=== PATIENT | male | born 1975 | race Caucasian/White ===

== ENCOUNTER → 2023-06-26 14:53 | Outpatient (REF) | payer OTHER, SELFPAY | LOC: RAD 14:53 | PROVIDERS: ATTENDING PHYSICIAN Specialist; FAMILY PHYSICIAN Nurse Practitioner Family | DX: C62.01 Malignant neoplasm of undescended right testis (principal) | CPT/HCPCS: 76870; 93976 ==

== ENCOUNTER 2024-02-20 12:05 | Inpatient (IN) | payer OTHER, SELFPAY ==
[2024-02-20] VITALS (22 sets, daily range): BP systolic 118–160; BP diastolic 67–94; PULSE 46–74; BMI 23.0; BMI 24.5
--- NOTE | 2024-02-20 08:20 | ED.GENMED ---
History of Present Illness
General
Chief Complaint: Abdominal Symptoms
Source: patient
Time Seen by Provider: 02/20/24 08:09
History of Present Illness
History of Present Illness:
48yoM with a history of depression presenting for evaluation of vomiting. His Trintellix dose was increased last week from 15mg to 20mg. He started to have fatigue and nausea starting 2 days ago. He has been vomiting persistently over the past
several days. He noticed that his emesis started to appear dark brown this morning and he then had an episode of bright red blood mixed in with his emesis. Patient has some burning pain in his throat but otherwise denies pain. He denies any
dizziness, syncope, shortness of breath, fevers, diarrhea. Of note, patient had a BBQ the day his symptoms started although he denies any suspicious food intake. No recent travel or sick contacts. He denies any NSAID use.
Phy Exam
Physical Exam
Physical Exam:
Actively vomiting coffee ground emesis during exam
General Physical Exam
General Presentation: mild distress
General Skin: warm and dry
General Habitus: normal
General Mental: alert
ENT Exam
ENT Exam: normocephalic
Cardiovascular Exam
Cardiovascular Exam: regular rate/rhythm
Pulmonary Exam
Pulmonary Exam: lungs clear, no respiratory distress, no crackles and no wheezing
Gastrointestinal Exam
Gastrointestinal Exam: non tender, soft and non distended
Alex Coma Scale
Eye Opening: Spontaneous
Verbal Response: Oriented
Motor Response: Obeys Commands
GCS Total Score: 15
Skin Exam
Skin Exam: normal color and warm/dry
Psychiatric Exam
Psychiatric Exam: normal mood/affect
Course
Orders/Labs/Results
Orders:
Orders
02/20/24 08:18
0.9% Sodium Chloride 1000 ml [Nss] 1,000 ml IV BOLUS
Famotidine [Pepcid] 20 mg IV NOW STA
Ondansetron Injectable [Zofran] 4 mg IV NOW STA
Pantoprazole [Protonix IV] 80 mg IV NOW STA
02/20/24 08:46
Type+Screen Urgent
Complete Blood Count/With Diff Urgent
Lactate Level [Lactic Acid] Urgent
02/20/24 08:47
Comprehensive Metabolic Panel Urgent
Lipase Urgent
Magnesium Urgent
PTT Urgent
Prothrombin Time Urgent
02/20/24 09:51
ABO2 Urgent
BBK Wristband Number:
Associate notified that ABO2 has been ordered: [id number]
Date: 02/20/24
Time: 09:20
Councilman ID: [id number]
02/20/24 10:21
0.9% Sodium Chloride 1000 ml [Nss] 1,000 ml IV BOLUS
Ondansetron Injectable [Zofran] 4 mg IV NOW STA
02/20/24 11:45
Admit/Transfer Patient As Directed
Co-Sign Provider:
Level of Care: Inpatient admission
Assign to:: Medical/Surgical
Physician / Group: leandra kerr
Diagnosis: hematemesis
Reason for Hospitalization: hematemesis
Expected length of stay greater than two midnights?: Yes
ELOS- Estimated Length of Stay in days: 2
I certify the patient meets the requirements for IP care: Yes
PRN Pain Medication Management As Directed
May give lesser potent ordered pain med per pt: Yes
preference::
Protocol:: Medication orders for pain may be administered in a
manner that supports deferring to patient preference
when the pt is:
- Requesting an ordered lesser potent pain medication.
Least to most potent pain medications are defined
as: acetaminophen < NSAID < tramadol < opioids
(morphine, oxycodone, hydromorphone).
- Requesting a lesser dose of the same medication IF
ORDERED.
- Requesting a less intrusive route of administration
if both routes are prescribed by the provider (PO <
IV).
02/20/24 11:46
Code Status As Directed
Resuscitation Status: Full Code
02/20/24 12:09
0.9% Sodium Chloride 1000 ml [Nss] 1,000 ml IV 100 mls/hr
Acetaminophen [Tylenol] 650 mg PO Q6HPRN PRN
Ondansetron Injectable [Zofran] 4 mg IV Q6HPRN PRN
Prochlorperazine [Compazine] 10 mg IV Q6HPRN PRN
02/20/24 12:09
EKG [Electrocardiogram (*1)] Routine
Reason for Study: QTc Monitoring
Activity As Directed
Activity Level: Ambulate
INT (Intravenous Needle Therapy) As Directed
Comment: Place 2 IV catheters of the largest bore possible until stable
Orthostatic Vital Signs As Directed
Orthostatic VS Frequency: Now
Comment: then every four hours for twenty-four hours
Pneumatic Compression Sleeves As Directed
Type: Knee high
Vital Signs As Directed
Frequency: Per unit guidelines
DX Deep Vein Thrombosis Video Routine
02/20/24 Dinner
Clear Liquid
At Your Request: Limited Participation
Does patient need a safe tray?: No
02/20/24 20:00
Pantoprazole [Protonix IV] 40 mg IV BID
02/21/24 06:00
Basic Metabolic Panel IN AM
Complete Blood Count/No Diff IN AM
02/21/24 08:00
vortioxetine [Trintellix] 20 mg PO DAILY
02/22/24 06:00
Basic Metabolic Panel IN AM
Complete Blood Count/No Diff IN AM
02/23/24 06:00
Basic Metabolic Panel IN AM
Complete Blood Count/No Diff IN AM
Abnormal Lab Results
02/20/24 02/20/24
08:46 08:47
MCH 31.9 H pg
(27.0-31.0)
Absolute Lymphs (auto) 1.1 L 10^3/uL
(1.2-3.4)
BUN 22 H mg/dl
(9-20)
Glucose 101 H mg/dl
(70-99)
Lactic Acid 2.9 H mmol/L
(0.7-2.0)
Total Bilirubin 1.4 H mg/dl
(0.2-1.3)
02/20/24 08:46
02/20/24 08:47
Vital Signs
Initial and Last Documented VS:
Initial Vital Signs
Temp Pulse Resp BP Pulse Ox
98.2 F 72 18 154/94 98
02/20/24 08:04 02/20/24 08:04 02/20/24 08:04 02/20/24 08:04 02/20/24 08:04
Last Documented Vital Signs
Temp Pulse Resp BP Pulse Ox
98.2 F 56 19 125/72 96
02/20/24 08:04 02/20/24 13:15 02/20/24 13:15 02/20/24 13:00 02/20/24 13:15
MDM/Problems Addressed
Differential Diagnosis Includes:
48yoM here with nausea and vomiting x 2 days. Started with coffee ground emesis/hematemesis this morning. VSS. He is actively vomiting coffee ground emesis on initial exam. Abdominal exam is benign. Differential diagnosis includes but is not limited
to: PUD, gastritis, Allie Leon tear, anemia
Initial ED plan: Check abdominal labs, coags, and lactate. IV Protonix, Pepcid, Zofran, and fluid bolus for symptoms.
*Critical Care Note
Total Time (30-74mins, 75-104mins- exclusive of procedures): Not Applicable
Update Note
Update Note:
Hemoglobin normal at 15.3. Lactate elevated at 2.9. Remainder of labs unremarkable. Patient admitted given active coffee-ground emesis. Patient hemodynamically stable at time of admission.
ED Attending Note
-
Portions of this chart may have been created with voice recognition software.� Occasional wrong word or��sound alike� substitutions may have occurred due to the inherent limitations of voice recognition software.
Discharge Plan
Departure
Patient Disposition: Admit
Date of Disposition: 02/20/24
Time of Disposition: :24
Presentation/result/management discussed w/ accepting MD/DO: Hospitalist
Discharge Problem:
Coffee ground emesis
Interventions
Interventions:
*Risk Screen - Suicide Last Done: 02/20/24 08:04
*General Assessment Last Done: 02/20/24 08:33
*Neglect/Abuse Screening Last Done: 02/20/24 08:33
ED- Fall Risk Assessment Last Done: 02/20/24 08:33
*ED COVID-19 Vaccine History Last Done: 02/20/24 08:33
CX-Xvecqf-Rlbeuaaiqd Assessment Last Done: 02/20/24 08:33
[2024-02-20] MEDS: ZOFRAN 4 MG IV ×2 (08:51→10:38)
[2024-02-20] MEDS: NSS 1000 IV ×4 (08:51→23:28)
[2024-02-20] MEDS: PEPCID 20 MG IV (08:54)
[2024-02-20] MEDS: PROTONIX IV 80 MG IV (08:55)
[2024-02-20 09:10] LABS: % Basophils 0.4 % (0-2); % Eosinophils 0.2 % (0-6); % Immature Granulocytes 0.2 % (0-0.5); % Lymphocytes 21.1 % (20.5-51.1); % Monocytes 6.8 % (1.7-9.3); % Neutrophils 71.3 % (42.2-75.2); Absolute Lymphocytes 1.1 10^3/uL (1.2-3.4); Absolute Monocytes 0.4 10^3/uL (0.1-0.6); Absolute Neutrophils 3.7 10^3/uL (1.4-6.5); Hematocrit 43.6 % (39.0-52.0); Hemoglobin 15.3 g/dL (13.0-18.0); Mean Corp Hgb Conc. 35.1 g/dL (33.0-37.0); Mean Corpuscular Hgb 31.9 pg (27.0-31.0); Mean Corpuscular Volume 90.8 fL (80.0-94.0); Mean Platelet Volume 9.2 fL (7.4-10.4); Nucleated Red Blood Cells % 0 % (-); Platelet Count 260 10^3/uL (130-400); Red Cell Dist. Width 12.8 % (11.5-14.5); White Blood Cell Count 5.2 10^3/uL (4.8-10.8)
[2024-02-20 09:19] LABS: INR 1.01; PT 13.1 Sec (11.4-14.6)
[2024-02-20 09:20] LABS: APTT 26.2 Sec (23.4-35.0)
[2024-02-20 09:24] LABS: Lactic Acid 2.9 mmol/L (0.7-2.0)
[2024-02-20 09:26] LABS: ALT (SGPT) 18 U/L (0-50); AST (SGOT) 44 U/L (17-59); Albumin 4.3 g/dl (3.5-5.0); Alkaline Phosphatase 67 U/L (38-126); Blood Urea Nitrogen 22 mg/dl (9-20); Carbon Dioxide 23 mmol/L (22-30); Chloride 102 mmol/L (98-107); Estimated Creatinine Clearance 73 ml/min; Glucose 101 mg/dl (70-99); Lipase 129 U/L (23-300); Magnesium 2.1 mg/dl (1.6-2.3); Potassium 4.2 mmol/L (3.5-5.1); Sodium 137 mmol/L (135-145); Total Bilirubin 1.4 mg/dl (0.2-1.3); Total Protein 6.6 g/dl (6.3-8.2); eGFR > 60.00
--- NOTE | 2024-02-20 11:45 | HPS.HSE ---
Family Physician
-
Family Physician: THOMAS Reddy
Chief Complaint
-
Vomiting blood
History of Present Illness
48-year-old male with a past medical history of depression presents with a 1 day history of coffee-ground emesis. Patient is on Trintellix, which was recently increased from 15 mg to 20 mg p.o. daily. He tends to have vomiting during these
increases. He missed his medication dose on Monday and Monday. He took his medication this morning, and started vomiting. He first vomited up the apple he ate. He then vomited up parts of the apple with brown liquid. The third time he vomited,
it was mostly spit, mixed with brown and red liquid. He denies daily [id number]-mfm-[id number] NSAID use. He last took 2 tablets of ibuprofen 1 week ago. Denies abdominal pain. No nausea, no vomiting. No constipation, no diarrhea. No bloody stools. No
dysuria. No hematuria.
Medical History
Past Medical History
Past Medical History: Reports Other (Depression)
Past Surgical History: Reports Other (Vasectomy, right leg surgery)
Social History
Tobacco: Non-smoker
Alcohol: Occasional
Family History
Family History: Not pertinent
Allergies / Home Medications
Allergies reflects when Allergies were last updated in [employer].
Home Medications with original date entered in [employer]
Allergy/Medication List:
Allergies
Allergy/AdvReac Type Severity Reaction Status Date / Time
No Known Allergies Allergy Unverified 02/20/24 08:03
Home Medications Table - record
�Medication �Instructions �Recorded �Confirmed
vortioxetine 20 mg tablet 20 mg PO DAILY 02/20/24 02/20/24
(Trintellix)
Review of Systems
-
A 12 point ROS was completed and negative except as noted: Yes
Physical Exam
Vital Signs
Vital Signs
Temp Pulse Resp BP Pulse Ox
98.2 F 55 16 120/67 96
02/20/24 08:04 02/20/24 11:15 02/20/24 11:15 02/20/24 11:00 02/20/24 11:15
Physical Exam
General: No Apparent Distress
HEENT: NormoCephalic, Anicteric and Moist mucous membranes
Respiratory: Clear
Cardiac: S1/S2 and Regular Rhythm
GI: Soft, Non Tender, Non Distended and Normal Bowel Sounds
Musculoskeletal: No Clubbing, No Cyanosis and No Edema
Skin: Warm and Dry
Neuro: Awake, Alert and Oriented
Psych: Calm
Laboratory Results
-
02/20/24 08:46
02/20/24 08:47
Laboratory Results
PT 13.1 Sec (11.4-14.6) 02/20/24 08:47
INR 1.01 02/20/24 08:47
APTT 26.2 Sec (23.4-35.0) 02/20/24 08:47
Lactic Acid 2.9 mmol/L (0.7-2.0) H 02/20/24 08:46
Total Bilirubin 1.4 mg/dl (0.2-1.3) H 02/20/24 08:47
AST 44 U/L (17-59) 02/20/24 08:47
ALT 18 U/L (0-50) 02/20/24 08:47
Alkaline Phosphatase 67 U/L (38-126) 02/20/24 08:47
Lipase 129 U/L (23-300) 02/20/24 08:47
Impression/Plan
-
HPI: 48-year-old male with a past medical history of depression presents with a 1 day history of coffee-ground emesis. Patient is on Trintellix, which was recently increased from 15 mg to 20 mg p.o. daily. He tends to have vomiting during these
increases. He missed his medication dose on Monday and Monday. He took his medication this morning, and started vomiting. He first vomited up the apple he ate. He then vomited up parts of the apple with brown liquid. The third time he vomited,
it was mostly spit, mixed with brown and red liquid. He denies daily ywxx-tyd-[id number] NSAID use. He last took 2 tablets of ibuprofen 1 week ago. Denies abdominal pain. No nausea, no vomiting. No constipation, no diarrhea. No bloody stools. No
dysuria. No hematuria.
#Hematemesis
Denies daily NSAID use
Last took 2 tablets of ibuprofen 1 week ago
Suspect Allie-Leon tear
Consult GI, treat with Protonix 40 mg IV twice daily, clear liquid diet, IVFs, enti-emtics prn
#Depression
Recently had his Trintellix increased to 20 mg p.o. daily
DVT prophylaxis�SCDs
Full code
Total time spent to see the patient on the floor, examine the patient, review data and lab results, discuss treatment plan with patient, nursing staff around 55 minutes.
--- NOTE | 2024-02-20 15:48 | CON.GI ---
Addendum entered and electronically signed by Gely Suresh MD 02/20/24 18:50:
I saw and examined the patient.
The [employer] or PA's note was reviewed and I agree with the note.
Comment: 48-year-old male past medical history of depression, known to me with history of high risk colon polyp, who has recurrent nausea and vomiting in the setting of adjusting his antidepression medications who now has bleeding with his emesis.
Initially started as coffee-ground. Had an episode of bleeding here in the ER. Hemoglobin stable. Rare NSAID use. Most likely I suspect this is a Allie-Leon tear. Could also be esophagitis, esophageal ulcer. Recommend to continue PPI, plan
for upper endoscopy tomorrow. We discussed the risk, benefits, and alternatives to upper endoscopy. The risks include bleeding, infection, perforation, missed lesion, and cardiopulmonary complications from anesthesia. The importance of bringing
an escort and remaining NPO after midnight was discussed. Also has reflux.
Original Note:
Consultation
-
Date/Time Consultation Requested: 02/20/24 @ 14:38
Date/Time Consultation Performed: 02/20/24 @ 15:45
Requesting Provider: Dr. Spain
Performing Provider: THOMAS Glover; Dr. Edith Suresh
Reason for Consultation: coffee ground emesis
Medical History
Chief Complaint / HPI
Chief Complaint: Vomiting blood
History of Present Illness:
The patient is a 48-year-old male with a past medical history significant for depression, who presented to the emergency room with complaints of vomiting blood, which we are being asked to evaluate for. The patient reports over the weekend attending
a barbecue where he was eating various foods that he typically would not eat. He notes that he did not feel the best Monday into Monday and did sleep a lot. He notes that recently he had increased his dose of Trintellix which she takes for
anxiety/depression and was feeling increasingly nauseated. He notes that he did have an episode of vomiting yesterday but this was mostly bile and apples that he had eaten prior to vomiting. He notes that he did go back to sleep, and upon
awakening he did have a recurrent episode of nausea with vomiting, and at that time did notice a very dark discoloration of his vomit. He continued to not feel well and therefore came to the emergency room for further evaluation. He notes he did
have another episode of coffee-ground emesis with some bright red blood when he was in the emergency room here. He notes that he has been on various medications for depression in the past and notes that with increased dosages or new medications
starts he does experience nausea with intermittent vomiting. He notes that he does feel a little bit dizzy but feels this may be related to his reduced p.o. intake. He denies any recent antibiotics or steroids. He does take NSAIDs but infrequently
for headaches. He took ibuprofen about 1 week ago. He does have a history of heartburn a few times a week and will take Tums with good resolution. He avoids potential triggers in the diet. He denies any constipation or diarrhea, but notes that
he did have a little bit of very dark/black appearing stool this morning. He otherwise denies any chest pain, shortness of breath, fevers, chills, unintentional weight loss, loss of appetite, or abdominal pain. He had a colonoscopy in May 2022
for colon cancer screening in which he he had 2 polyps removed from the sigmoid colon, and a post polypectomy scar at the ileocecal valve was seen. There was a mucosal nodule at the ileocecal valve with ulcer was biopsied. Internal hemorrhoids
were also seen. Pathology revealed benign etiology.
Routine labs on admission showed a hemoglobin 15.3, platelets 260,000, INR 1.01, BUN 22, creatinine 1.1, sodium 137, potassium 4.2, total bilirubin 1.4, AST 44, ALT 18, alk phos 67, lipase 129. He was started on pantoprazole 40 mg IV twice daily,
IV antiemetics, IV fluids and a clear liquid diet, pending GI evaluation.
Past Medical History
Past Medical History: Psychiatric (depression)
Past Surgical History: Orthopedic (right knee surgery) and Other (vasectomy)
Social History
Tobacco: Non-Smoker
Alcohol: Occasional
Drug: None
Family History
Family History: Reviewed & Not Pertinent
Allergies / Home Medications
Allergy/AdvReac Type Severity Reaction Status Date / Time
No Known Allergies Allergy Unverified 02/20/24 08:03
�Medication �Instructions �Recorded
vortioxetine 20 mg tablet 20 mg PO DAILY 02/20/24
(Trintellix)
Review of Systems
-
History Source: Patient
Constitutional: Reports Fatigue
EENT: Reports No Symptoms
Respiratory: Reports No Symptoms
Cardiac: Reports No Symptoms
Abdomen/GI: Reports Nausea, Vomiting and Other (coffee ground emesis)
: Reports No Symptoms
Musculoskeletal: Reports No Symptoms
Skin: Reports No Symptoms
Neurological: Reports Dizzy
Vital Signs
Temp Pulse Resp BP Pulse Ox
98.2 F 56 19 125/72 96
02/20/24 08:04 02/20/24 13:15 02/20/24 13:15 02/20/24 13:00 02/20/24 13:15
Physical Exam
Exam
General: Well Developed, Well Nourished, No Apparent Distress and Comfortable
HEENT: Normocephalic and Atraumatic
Respiratory: Clear
Cardiac: S1/S2 and Regular Rhythm
Breast: N/A
GI: Soft, Non Tender, Non Distended and Normal Bowel Sounds
Rectal: Deferred by Provider
Musculoskeletal: No Edema
Skin: Warm and Dry
Neuro: Awake, Alert and Oriented
Psych: Calm
Results
WBC 5.2 10^3/uL (4.8-10.8) 02/20/24 08:46
Hgb 15.3 g/dL (13.0-18.0) 02/20/24 08:46
Hct 43.6 % (39.0-52.0) 02/20/24 08:46
MCV 90.8 fL (80.0-94.0) 02/20/24 08:46
Plt Count 260 10^3/uL (130-400) 02/20/24 08:46
Absolute Neuts (auto) 3.7 10^3/uL (1.4-6.5) 02/20/24 08:46
PT 13.1 Sec (11.4-14.6) 02/20/24 08:47
INR 1.01 02/20/24 08:47
APTT 26.2 Sec (23.4-35.0) 02/20/24 08:47
Sodium 137 mmol/L (135-145) 02/20/24 08:47
Potassium 4.2 mmol/L (3.5-5.1) 02/20/24 08:47
Chloride 102 mmol/L (98-107) 02/20/24 08:47
Carbon Dioxide 23 mmol/L (22-30) 02/20/24 08:47
BUN 22 mg/dl (9-20) H 02/20/24 08:47
Creatinine 1.1 mg/dL (0.7-1.3) 02/20/24 08:47
Calcium 9.0 mg/dl (8.4-10.2) 02/20/24 08:47
Total Bilirubin 1.4 mg/dl (0.2-1.3) H 02/20/24 08:47
AST 44 U/L (17-59) 02/20/24 08:47
ALT 18 U/L (0-50) 02/20/24 08:47
Alkaline Phosphatase 67 U/L (38-126) 02/20/24 08:47
Lipase 129 U/L (23-300) 02/20/24 08:47
Prior GI Procedures:
EGD: none
Colonoscopy: Dr. Suresh, 05/27/22 : The examined portion of the ileum was normal. Mucosal nodule at the ileocecal valve. Biopsied. Post-polypectomy scar at the ileocecal valve. Two 2 mm polyps in the sigmoid colon, removed with a jumbo cold
forceps. Resected and retrieved. Internal hemorrhoids. Anal papilla(e) were hypertrophied. path benign.
Assessment / Plan
-
The patient is a 48-year-old male with a past medical history significant for depression, who presented to the emergency room with complaints nausea with coffee-ground emesis concerning for possible upper GI bleed. The patient reports attending a
barbecue over the weekend, overall not feeling well. He also had increase in his Trintellix which she takes for anxiety/depression. He has increased episodes of nausea with vomiting initially with bilious emesis, which progressed to
coffee-ground/bright red blood x 2 small episodes. He denies any significant use of NSAIDs or significant alcohol use. He has never had an EGD. He denies any overt melena or hematochezia, although did note some dark stool this morning. His
hemoglobin is stable at 15.3. His platelets and INR are normal. His BUN was mildly elevated with a normal creatinine. He was started on twice daily PPI and placed on clear liquid diet.
Problem list:
-Coffee ground emesis
-Nausea/vomiting, improved
-Mildly elevated BUN
-Mild elevation of total bilirubin
-Intermittent heartburn
-History of colon polyps
-depression/anxiety
Recommendations:
-Etiology of current symptoms possibly secondary to Allie-Leon tear versus upper GI bleed (such as AVMs versus peptic ulcer disease versus erosive gastritis versus other) versus side effects of medication with Trintellix after increased dosage
versus other.
-To consider EGD pending clinical course. Defer to Dr. Suresh. If stable can consider OP EGD (with hx intermittent heartburn should have for Mccauley's surveillance)
-Okay for clear liquid diet today and n.p.o. after midnight for possible procedure. The patient is agreeable to this plan.
-Avoid NSAIDs
-Continue pantoprazole 40 mg IV twice daily for now
-Monitor H&H
-Large bore IV's
-If any recurrent episodes of coffee-ground emesis/hematemesis to consider more urgent EGD
-PRN antiemetics
-Add direct bilirubin. Likely benign findings (Gilbert's) with otherwise normal LFT's
-Further management pending above
-
-
Thank you for consultation and allowing me to participate in the patient's care. Please call the english as a second language instructor GI physician during the after hours with any questions or concerns.
--- NOTE | 2024-02-20 17:52 | PTCARENOTE ---
Pt admitted into room 418-2 from ED, ambulated from stretcher to bed. AAOx3. Pt denying nausea and pain at this time. Oriented to room and plan of care. Menu provided for patient to order dinner on clear liquid diet. Call humphreys within reach.
[2024-02-20 18:07] LABS: Direct Bilirubin 0.1 mg/dl (0.0-0.4)
[2024-02-20] MEDS: PROTONIX IV 40 MG IV (19:58)
[2024-02-20] MEDS: NSS (PRESERVATIVE FREE) 10 ML IV (19:58)
[2024-02-21] VITALS (7 sets, daily range): BP systolic 112–157; BP diastolic 74–90; PULSE 44–54
[2024-02-21] MEDS: NSS (PRESERVATIVE FREE) 10 ML IV (08:18)
[2024-02-21] MEDS: PROTONIX IV 40 MG IV (08:18)
[2024-02-21 08:49] LABS: Hematocrit 41.7 % (39.0-52.0); Hemoglobin 14.4 g/dL (13.0-18.0); Mean Corp Hgb Conc. 34.5 g/dL (33.0-37.0); Mean Corpuscular Hgb 32.1 pg (27.0-31.0); Mean Corpuscular Volume 92.9 fL (80.0-94.0); Mean Platelet Volume 9.5 fL (7.4-10.4); Platelet Count 233 10^3/uL (130-400); Red Blood Cell Count 4.49 10^6/uL (4.70-6.10); Red Cell Dist. Width 12.8 % (11.5-14.5); White Blood Cell Count 3.8 10^3/uL (4.8-10.8)
[2024-02-21 09:59] LABS: Blood Urea Nitrogen 10 mg/dl (9-20); Calcium 8.8 mg/dl (8.4-10.2); Carbon Dioxide 27 mmol/L (22-30); Chloride 102 mmol/L (98-107); Estimated Creatinine Clearance 73 ml/min; Glucose 86 mg/dl (70-99); Potassium 4.3 mmol/L (3.5-5.1); Sodium 137 mmol/L (135-145); eGFR > 60.00
--- NOTE | 2024-02-21 11:40 | CM ---
Patient seen bedside, initial assessment completed. Patient resides with his and son in a multiple story home, 'a few' steps to enter. Patient denies use of DME, denies VN or SNF history. Patient confirms PCP Mauricio Abdullahi, pharmacy
[facility] [place], confirms prescription coverage. Patient denies insecurities at home. Patient denies needs from CM at this time, will continue to follow for all discharge planning needs.
Plan; home no needs likely.
--- NOTE | 2024-02-21 13:34 | W.PN.HOSP.TC ---
Today's Communication/Plan
-
Cleared by GI for discharge today
Assessment / Plan
Assessment / Plan
HPI: 48-year-old male with a past medical history of depression presents with a 1 day history of coffee-ground emesis. Patient is on Trintellix, which was recently increased from 15 mg to 20 mg p.o. daily. He tends to have vomiting during these
increases. He missed his medication dose on Monday and Monday. He took his medication this morning, and started vomiting. He first vomited up the apple he ate. He then vomited up parts of the apple with brown liquid. The third time he vomited,
it was mostly spit, mixed with brown and red liquid. He denies daily cyps-owz-kceoqnf NSAID use. He last took 2 tablets of ibuprofen 1 week ago. Denies abdominal pain. No nausea, no vomiting. No constipation, no diarrhea. No bloody stools. No
dysuria. No hematuria.
#Hematemesis
#Esophagitis
#Hiatal hernia
Denies daily NSAID use
Last took 2 tablets of ibuprofen 1 week ago
Appreciate GI input, 02/20 EGD showing esophagitis, appears eosinophilic in nature, hiatal hernia
Hematemesis resolved, tolerating a diet
Cleared by GI for discharge on Protonix 40 mg p.o. twice a day
Follow-up with GI in the office in 3-4 weeks, and PCP in 1 week
#Depression
Recently had his Trintellix increased to 20 mg p.o. daily
DVT prophylaxis�SCDs
Full code
Physical Exam
General: No acute distress
HEENT: Normocephalic, Atraumatic, EOMI, MMM
Respiratory: Clear to Auscultation bilaterally
Cardiac: Normal S1/S2, Regular Rate and Rhythm
GI: Soft, Nontender, Nondistended, Normal Bowel Sounds
Extremities: No Clubbing, Cyanosis, or Edema
Neuro: Nonfocal/Grossly Intact
Psych: Calm, Cooperative
Derm: No Visible lesions
Anticipated Discharge: Today
Subjective/Interval History
-
Date of Service: February 21, 2024
Hematemesis resolved. Patient tolerated a diet. No fever.
Objective Data
-
Labs:
Laboratory Results
02/21/24
06:00
WBC Pending
Hgb Pending
Hct Pending
Plt Count Pending
Sodium Pending
Potassium Pending
Chloride Pending
Carbon Dioxide Pending
BUN Pending
Creatinine Pending
Glucose Pending
Calcium Pending
Vital Signs:
Vital Signs
Temp Pulse Resp BP Pulse Ox
98.4 F 58 18 150/84 98
02/21/24 03:35 02/20/24 17:13 02/21/24 03:35 02/20/24 17:13 02/21/24 03:35
I&O
02/20/24 02/21/24 02/22/24
06:59 06:59 06:59
Intake Total 120 / 120
Balance 120 / 120
--- NOTE | 2024-02-21 13:39 | W.DCSUMMARY ---
Discharge Summary
Discharge Data
Date of Admission: 02/20/24
Date of Discharge: 02/21/24
-
Pending Results: Yes
Additional Pending Results:
Esophageal mucosa biopsy
Hospital Course
Discharge diagnosis:
Hematemesis
Esophagitis
Hiatal hernia
Non-obstructing Schatzki ring
Depression
Consults: GI
02/21/2024 - EGD
Impression: - Esophageal mucosal changes suspicious for
eosinophilic esophagitis.
- Widely patent and non-obstructing Schatzki ring.
- 3 cm hiatal hernia.
- Erythematous mucosa in the stomach. Biopsied.
- Normal examined duodenum.
- Biopsies were taken with a cold forceps for
evaluation of eosinophilic esophagitis.
Recommendation: - Resume regular diet.
- Continue present medications. Continue protonix 40
BID.
- Await pathology results. Pending path will need
follow up with me in office.
Hospital course:
48-year-old male with a past medical history of depression was admitted for hematemesis. Patient was treated with Protonix 40 mg IV twice daily. His hemoglobin was trended, and remained normal. He was seen in conjunction with GI. He had an
endoscopy, which shows esophagitis, suspicious for eosinophilic esophagitis, biopsies are pending. GI recommends Protonix 40 mg po twice a day. Patient tolerated a diet. He did not have any recurrence of vomiting or hematemesis. He is medically
stable and cleared by GI for discharge. He needs to follow-up with GI in the office in 3-4 weeks, and his primary care doctor in 1 week.
Disposition: Home self-care
Discharge planning: Required 42 minutes
Discharge Plan
-
Patient Disposition: Home (Routine Discharge)
Discharge Diagnosis/Procedures: Esophagitis, coffee-ground emesis, hiatal hernia
Condition: Good
Diet: Regular
Activity: As tolerated
Driving Restrictions: As prior to admission
Activity Restrictions/Additional Instructions:
The GI doctor recommends Protonix/pantoprazole twice a day for your esophagitis.
Please avoid all [id number] NSAID medications such as ibuprofen, naproxen, Aleve, Motrin, Advil.
You can take acetaminophen 1 g up to 3 times a day as needed for pain.
Follow-up with your primary care doctor in 1 week, and your usual GI doctor in the office in 3-4 weeks.
Referrals:
Eddi Abdullahi CRNP [Family Provider] -
Gely Suresh MD [Active] - in three to four weeks
Prescriptions:
New
pantoprazole 40 mg tablet,delayed release (DR/EC)
40 mg PO BID Qty: 60 0RF
ondansetron 8 mg tablet,disintegrating
8 mg PO DAILY PRN (Reason: nausea and vomiting) Qty: 7 0RF
Continued
Trintellix 20 mg Tablet
20 mg PO DAILY
Discharge Orders:
Discharge Patient (As Directed); Ordered 02/21/24
Ordered By: Greg Spain
Discharge Date and Time
Discharge Date/Time: 02/21/24 14:02
Print Language: LUX[place]
== END 2024-02-21 14:02 | disposition home or self-care (01) | DRG 392 ==
LOC: 4 WEST ACU 12:05
PROVIDERS: Physician Assistant; ADMITTING PHYSICIAN Family Medicine; CONSULT PHYSICIAN Internal Medicine Gastroenterology; EMERGENCY PHYSICIAN Emergency Medicine; FAMILY PHYSICIAN Nurse Practitioner Family
PROC: 0DB68ZX Excision of Stomach, Via Natural or Artificial Opening Endoscopic, Diagnostic (ICD-10-PCS; 2024-02-21)
PROC: 0DB38ZX Excision of Lower Esophagus, Via Natural or Artificial Opening Endoscopic, Diagnostic (ICD-10-PCS; 2024-02-21)
PROC: 0DB18ZX Excision of Upper Esophagus, Via Natural or Artificial Opening Endoscopic, Diagnostic (ICD-10-PCS; 2024-02-21)
DX: K20.0 Eosinophilic esophagitis (principal); K92.0 Hematemesis; K92.1 Melena; F32.A Depression, unspecified; R53.83 Other fatigue; K21.9 Gastro-esophageal reflux disease without esophagitis; F41.9 Anxiety disorder, unspecified; R94.4 Abnormal results of kidney function studies; K22.89 Other specified disease of esophagus; K22.2 Esophageal obstruction; K44.9 Diaphragmatic hernia without obstruction or gangrene; K31.89 Other diseases of stomach and duodenum; Z86.0100 Personal history of colon polyps, unspecified
CPT/HCPCS: 88305; 88312; 80048; 80053; 82248; 83605; 83690; 83735; 85025; 85027; 85610; 85730; 86850; 86900; 86901; 88342; 93005; 96361; 96374; 96375; 96376; 99285

== ENCOUNTER 2024-12-18 06:19 | Day surgery (SDC) | payer OTHER, SELFPAY | END 2024-12-18 10:10 | disposition home or self-care (01) | LOC: GI 06:19 | PROVIDERS: ATTENDING PHYSICIAN Internal Medicine Gastroenterology | DX: Z12.11 Encounter for screening for malignant neoplasm of colon (principal); D12.5 Benign neoplasm of sigmoid colon; K63.89 Other specified diseases of intestine; K62.89 Other specified diseases of anus and rectum; K64.9 Unspecified hemorrhoids; Z86.0100 Personal history of colon polyps, unspecified; Z98.890 Other specified postprocedural states | CPT/HCPCS: 45385; 45380; 88305 ==

== ENCOUNTER 2025-05-10 22:40 | Emergency (ER) | payer OTHER, SELFPAY ==
[2025-05-10 22:41] VITALS: BP 136/79
[2025-05-10] MEDS: ROXICODONE 5 MG PO (23:03)
[2025-05-10] MEDS: LIDOCAINE 4% PATCH 1 PATCH TOPICAL (23:05)
[2025-05-10] MEDS: TORADOL 30 MG IM (23:06)
--- NOTE | 2025-05-10 23:06 | ED.GENMED ---
History of Present Illness
<Dao Elliott PA-C - Last Filed: 05/10/25 23:07>
General
Chief Complaint: Fall
Time Seen by Provider: 05/10/25 22:49
History of Present Illness
History of Present Illness:
49-year-old male with no significant past medical history presents to the emergency department for evaluation of left thoracic back pain and shortness of breath after falling and landing on his back slipping on ice. Denies head strike. Able to
take a deep breath due to severe pain. Does not take blood thinners.
Review of Systems
<Dao Elliott PA-C - Last Filed: 05/10/25 23:07>
Review of Systems
Allergies reviewed?: Yes
All Other Systems: ROS reviewed and negative except as documented in HPI and ROS
Phy Exam
<Dao Elliott PA-C - Last Filed: 05/10/25 23:07>
Physical Exam
Physical Exam:
GEN: In visible pain, conversational dyspnea noted
HEENT: Oral mucosa moist, no scleral icterus
Cardiac: Regular rate
Lung: Conversational dyspnea with short halting breaths, unable to inspire fully, lungs clear
MSK: Abrasion and swelling to the posterior thoracic cage with no palpable deformity or crepitus, no flail segment
Skin: Good color, no pallor or jaundice, no rashes
Neuro: AO x3, moves all extremities freely
Psych: Calm, cooperative
Course
<Dao Elliott PA-C - Last Filed: 05/10/25 23:07>
Orders/Labs/Results
Orders:
Orders
05/10/25 22:52
Ketorolac [Toradol] 30 mg IM NOW STA
Lidocaine [Lidocaine 4% Patch] 1 patch TOPICAL NOW STA
Apply Lidocaine patch(s) to:: L thoracic back
Oxycodone [Roxicodone] 5 mg PO NOW STA
CR Chest - 2 Views Urgent
Comment:
Reason For Exam: fall, dyspnea
05/10/25 23:30
HYDROmorphone [Dilaudid] 0.5 mg IV NOW STA
05/10/25 23:40
Basic Metabolic Panel Urgent
Complete Blood Count/No Diff Urgent
05/11/25 00:00
CT Chest/abd/pel W Iv Cont Urgent
Reason For Exam: fall, L flank injury
05/11/25 01:38
Oxycodone [Roxicodone] 5 mg PO NOW STA
05/11/25 01:42
Incentive Spirometry [Rx Incentive Spirometry] [RESP] Urgent
Frequency: q1h while awake
Abnormal Lab Results
05/10/25
23:40
WBC 4.7 L 10^3/uL
(4.8-10.8)
RBC 4.40 L 10^6/uL
(4.70-6.10)
Hct 38.6 L %
(39.0-52.0)
05/10/25 23:40
05/10/25 23:40
Vital Signs
Initial and Last Documented VS:
Initial Vital Signs
Temp Pulse Resp BP Pulse Ox
97.9 F 60 19 136/79 97
05/10/25 22:41 05/10/25 22:41 05/10/25 22:41 05/10/25 22:41 05/10/25 22:41
Last Documented Vital Signs
Temp Pulse Resp BP Pulse Ox
97.9 F 66 18 114/92 98
05/10/25 22:41 05/11/25 01:35 05/11/25 01:35 05/11/25 01:35 05/11/25 01:35
<Nolele Dowling PA-C - Last Filed: 05/11/25 02:38>
Orders/Labs/Results
Orders:
Orders
05/10/25 22:52
Ketorolac [Toradol] 30 mg IM NOW STA
Lidocaine [Lidocaine 4% Patch] 1 patch TOPICAL NOW STA
Apply Lidocaine patch(s) to:: L thoracic back
Oxycodone [Roxicodone] 5 mg PO NOW STA
CR Chest - 2 Views Urgent
Comment:
Reason For Exam: fall, dyspnea
05/10/25 23:30
HYDROmorphone [Dilaudid] 0.5 mg IV NOW STA
05/10/25 23:40
Basic Metabolic Panel Urgent
Complete Blood Count/No Diff Urgent
05/11/25 00:00
CT Chest/abd/pel W Iv Cont Urgent
Reason For Exam: fall, L flank injury
05/11/25 01:38
Oxycodone [Roxicodone] 5 mg PO NOW STA
05/11/25 01:42
Incentive Spirometry [Rx Incentive Spirometry] [RESP] Urgent
Frequency: q1h while awake
Abnormal Lab Results
05/10/25
23:40
WBC 4.7 L 10^3/uL
(4.8-10.8)
RBC 4.40 L 10^6/uL
(4.70-6.10)
Hct 38.6 L %
(39.0-52.0)
05/10/25 23:40
05/10/25 23:40
Vital Signs
Initial and Last Documented VS:
Initial Vital Signs
Temp Pulse Resp BP Pulse Ox
97.9 F 60 19 136/79 97
05/10/25 22:41 05/10/25 22:41 05/10/25 22:41 05/10/25 22:41 05/10/25 22:41
Last Documented Vital Signs
Temp Pulse Resp BP Pulse Ox
97.9 F 66 18 114/92 98
05/10/25 22:41 05/11/25 01:35 05/11/25 01:35 05/11/25 01:35 05/11/25 01:35
<Dao Elliott PA-C - Last Filed: 05/10/25 23:07>
*Pulse Oximetry
SaO2: 97
<Noelle Dowling PA-C - Last Filed: 05/11/25 02:38>
*Pulse Oximetry
Patient hypoxic: no
*Critical Care Note
Total Time (30-74mins, 75-104mins- exclusive of procedures): Not Applicable
<Noelle Dowling PA-C - Last Filed: 05/11/25 02:38>
Update Note
Update Note:
Update: Assumed care of patient pending CT scan. Imaging without evidence of rib fracture or other traumatic injuries in chest, abdomen, or pelvis. His lab work is unremarkable patient appears somewhat comfortable at rest however still with
significant discomfort with any movement. Suspect likely rib contusion/muscular injuries. I did offer patient admission for pain control of her patient prefers discharge home. Will discharge with incentive spirometer, pain management, and very
strict return precautions. Advised patient to follow-up with his primary care in a few days to ensure symptoms improving. Patient and patient's are comfortable with plan.
ED Attending Note
<Dao Elliott PA-C - Last Filed: 05/10/25 23:07>
-
Portions of this chart may have been created with voice recognition software.� Occasional wrong word or��sound alike� substitutions may have occurred due to the inherent limitations of voice recognition software.
Discharge Plan
Departure
Patient Disposition: Home (Routine Discharge)
Date of Disposition: 05/11/25
Time of Disposition: 01:38
Patient with high blood pressure during this ER visit?: Yes
Condition: Good
Covid-19: Not Applicable
Discharge Problem:
Fall, Acute left-sided back pain
Instructions: Rib fracture or bruised rib - ED (DC), BLOOD PRESSURE
Prescriptions:
New
oxycodone 5 mg tablet
5 mg PO Q6H PRN (Reason: Pain) Qty: 10 0RF
No Action
pantoprazole 40 mg tablet,delayed release (DR/EC)
40 mg PO DAILY
Referrals:
UNKNOWN - PT DOES,NOT KNOW [Unknown Provider]
Stand Alone Forms: Return to Work
Activity Restrictions/Additional Instructions:
RETURN TO THE EMERGENCY DEPARTMENT ANY INTRACTABLE PAIN, SHORTNESS OF BREATH, FEVER PRODUCTIVE COUGH, WORSENING IN CURRENT SYMPTOMS, OR ANY OTHER CONCERNS
- Your imaging showed no evidence of fracture or other traumatic injuries. You likely sustained contusion/bruising to your ribs.
- Continue to alternate Tylenol and Motrin for pain. You can take oxycodone as needed for intractable pain. This may cause drowsiness you should not take prior to driving. Apply lidocaine patches
- Please use incentive spirometer 10 times per hour when awake prevent any complications
- Follow-up with primary care for further evaluation/management in few days to ensure that your symptoms are improving
Monitor your symptoms closely and return to the emergency department with any acute worsening/new symptoms or any other concerns
Interventions
Interventions:
*General Assessment Last Done: 05/10/25 22:42
*Neglect/Abuse Screening Last Done: 05/10/25 22:42
*ED COVID-19 Vaccine History Last Done: 05/10/25 22:42
*ED Influenza Vaccine History Last Done: 05/10/25 22:42
[facility] Risk Assessment Tool Last Done: 05/10/25 23:25
*Risk Screen - Suicide (C-SSRS) Last Done: 05/10/25 22:42
*Nursing Disposition Last Done: 05/11/25 02:06
ED-Musculoskeletal Assessment Last Done: 05/10/25 23:20
ED- Neurological Assessment Last Done: 05/10/25 23:20
ED-Skin Assessment Last Done: 05/10/25 23:20
Discharge Date and Time
Discharge Date/Time: 05/11/25 02:10
Print Language: STATELESS
[2025-05-10 23:19] VITALS: BMI 25.2
[2025-05-10] MEDS: DILAUDID 0.5 MG IV (23:43)
[2025-05-10 23:46] VITALS: BP 127/82
[2025-05-10 23:49] LABS: Hematocrit 38.6 % (39.0-52.0); Hemoglobin 13.1 g/dL (13.0-18.0); Mean Corp Hgb Conc. 33.9 g/dL (33.0-37.0); Mean Corpuscular Volume 87.7 fL (80.0-94.0); Platelet Count 265 10^3/uL (130-400); Red Cell Dist. Width 12.4 % (11.5-14.5)
[2025-05-11 00:04] LABS: Blood Urea Nitrogen 19 mg/dl (9-20); Calcium 9.1 mg/dl (8.4-10.2); Carbon Dioxide 27 mmol/L (22-30); Chloride 104 mmol/L (98-107); Estimated Creatinine Clearance 90 ml/min; Glucose 92 mg/dl (70-99); Potassium 4.4 mmol/L (3.5-5.1); Sodium 137 mmol/L (135-145); eGFR > 60.00
[2025-05-11 00:40] VITALS: BP 136/101
[2025-05-11 01:35] VITALS: BP 114/92
[2025-05-11] MEDS: ROXICODONE 5 MG PO (01:51)
== END 2025-05-11 02:10 | disposition home or self-care (01) ==
LOC: EMR 22:40
PROVIDERS: Physician Assistant; EMERGENCY PHYSICIAN Emergency Medicine; FAMILY PHYSICIAN Nurse Practitioner Family
DX: S20.419A Abrasion of unspecified back wall of thorax, initial encounter (principal); W00.0XXA Fall on same level due to ice and snow, initial encounter
CPT/HCPCS: 99284; 96374; 96372; 71046; 71260; 74177; 80048; 85027; Q9967

== ENCOUNTER → 2025-05-12 14:28 | Outpatient (REF) | payer OTHER, SELFPAY | LOC: HWRAD 14:28 | PROVIDERS: ATTENDING PHYSICIAN Internal Medicine | DX: S22.42XA Multiple fractures of ribs, left side, initial encounter for closed fracture (principal); Z91.81 History of falling; M54.6 Pain in thoracic spine; R07.81 Pleurodynia | CPT/HCPCS: 71046; 72072 ==